=== PATIENT | male | born 1945 | race Caucasian/White ===

== ENCOUNTER 2016-07-12 03:26 | Emergency (ER) | payer MEDICARE ==
[2016-07-12] MEDS ORDERED: predniSONE 20 MG Tab PO STA (03:56)
--- NOTE | 2016-07-12 04:04 | EDM.PDOC ---
ED HPI GENERAL MEDICAL PROBLEM - General Chief Complaint: Allergic Reaction Stated Complaint: POSS ALERGIC REACTION Time Seen by Provider: 07/12/16 03:40 Source of Information: Reports: Patient, RN Notes Reviewed History Limitations: Reports: No Limitations - History of Present Illness INITIAL COMMENTS - FREE TEXT/NARRATIVE: The patient states that he developed generalized urticaria with pruritus yesterday morning, 07/11/2016. He believes that it was after he ate some a new type of cracker. He took some Benadryl, which helped with his symptoms, however , his symptoms worsened again last night, again, after eating those same crackers. He took some additional Benadryl before going to bed. He states that he has lip swelling, but denies any oropharyngeal swelling, dyspnea, or wheezing. No prior similar symptoms. The patient relates that he was started on Lipitor about 8 days ago, took it for 4 days, before discontinuing it due to lightheadedness. - Related Data Allergies Allergy/AdvReac Type Severity Reaction Status Date / Time No Known Allergies Allergy Verified 07/12/16 03:39 Home Meds: Home Meds Levothyroxine [Synthroid] 50 mcg PO DAILY 05/16/14 [History] Lisinopril/Hydrochlorothiazide [Lisinopril-Hctz 10-12.5 mg Tab] 1 tab PO DAILY 05/16/14 [History] EPINEPHrine [Adrenaclick] 1 injection IM ASDIRECTED PRN #1 kit 07/12/16 [Rx] Prednisone [IJD: predniSONE] 1 tab PO WITHBREAKFAST #5 tab 07/12/16 [Rx] Past Medical History HEENT History: Reports: Impaired Vision Cardiovascular History: Reports: High Cholesterol, Hypertension Endocrine/Metabolic History: Reports: Hypothyroidism - Past Surgical History Musculoskeletal Surgical History: Reports: Other (See Below) (Left elbow surgery x 2) Social & Family History - Family History Cardiac: Reports: [place] Neurological: Reports: CVA Oncologic: Reports: Leukemia - Tobacco Use Smoking Status *Q: Never Smoker Second Hand Smoke Exposure: No - Caffeine Use Caffeine Use: Reports: Coffee - Alcohol Use Alcohol Use History: Yes Alcohol Use Frequency: Socially - Recreational Drug Use Recreational Drug Use: No - Living Situation & Occupation Living situation: Reports: Single, with Significant Other Occupation: Employed ([employer]) ED ROS ALLERGIC REACTION - Review of Systems Review Of Systems: See Below Constitutional: Reports: No Symptoms HEENT: Reports: No Symptoms Respiratory: Reports: No Symptoms Cardiovascular: Reports: No Symptoms Endocrine: Reports: No Symptoms GI/Abdominal: Reports: No Symptoms : Reports: No Symptoms Musculoskeletal: Reports: No Symptoms Skin: Reports: No Symptoms Neurological: Reports: No Symptoms Psychiatric: Reports: No Symptoms Hematologic/Lymphatic: Reports: No Symptoms Immunologic: Reports: No Symptoms ED EXAM GENERAL NO PERIP PULSE - Physical Exam Exam: See Below Exam Limited By: No Limitations General Appearance: Alert, WD/WN, No Apparent Distress Eye Exam: Bilateral Eye: Normal Inspection Ears: Normal External Exam, Hearing Grossly Normal Nose: Normal Inspection, No Blood Throat/Mouth: Normal Inspection, Normal Teeth, Normal Gums, Normal Oropharynx, Normal Voice, No Airway Compromise, Other (Mildly swollen lips) Head: Atraumatic, Normocephalic Neck: Normal Inspection, Full Range of Motion Respiratory/Chest: No Respiratory Distress, Lungs Clear, Normal Breath Sounds, No Accessory Muscle Use Cardiovascular: Normal Peripheral Pulses, Regular Rate, Rhythm, No Gallop, No JVD, No Murmur, No Rub GI/Abdominal: Normal Bowel Sounds, Soft, Non-Tender, No Organomegaly, No Distention, No Abnormal Bruit, No Mass (Male) Exam: Deferred Rectal (Males) Exam: Deferred Back Exam: Normal Inspection, Full Range of Motion, NT Extremities: Normal Inspection, Normal Range of Motion, No Pedal Edema, Normal Capillary Refill Neurological: Alert, Oriented, Normal Cognition, No Motor/Sensory Deficits Psychiatric: Normal Affect Skin Exam: Warm, Dry, Intact, Other (Generalized urticaria) Lymphatic: No Adenopathy Course - Vital Signs Last Recorded V/S: Last Vital Signs Temp 36.6 C 07/12/16 03:36 Pulse 85 07/12/16 03:36 Resp 20 07/12/16 03:36 BP 121/60 07/12/16 03:36 Pulse Ox 97 07/12/16 03:36 - Orders/Labs/Meds Meds: Medications Discontinued Medications Generic Name Dose Route Start Last Admin Trade Name Freq PRN Reason Stop Dose Admin Prednisone 60 mg 07/12/16 03:56 07/12/16 04:07 Prednisone PO 07/12/16 03:57 60 mg ONETIME STA Administration - Re-Assessments/Exams Free Text/Narrative Re-Assessment/Exam: 07/12/16 03:57 The patient has generalized urticaria with pruritus. While he has lip swelling , he does not have any oropharyngeal swelling, and wheezing, or dyspnea. The cause of his allergic reaction is unknown, but something in the new crackers that he has been eating is a likely candidate. For today's purposes, I will treat him with prednisone 60 mg. I will discharge him home with an e-prescription for prednisone 20 mg daily, for the next 5 days , along with a prescription for an EpiPen. I will refer him to an Fundraising Coordinator. Departure - Departure Time of Disposition: 03:59 Disposition: Home, Self-Care 01 Condition: fair Clinical Impression: Allergic reaction, Urticaria, Pruritus - Discharge Information Prescriptions: EPINEPHrine [Adrenaclick] 1 injection IM ASDIRECTED PRN #1 kit PRN Reason: Shortness Of Breath Prednisone [IJD: predniSONE] 1 tab PO WITHBREAKFAST #5 tab Referrals: Beatriz Brady MD [Ordering Only Provider] - Forms: ED Department Discharge Additional Instructions: You were seen in the emergency room for itchy hives. You're suffering from an allergic reaction, but it is not known what you are allergic to. You have been started on the anti-inflammatory medicine prednisone. Take one tablet with breakfast each day, for the next 5 days, starting tomorrow, Friday , 07/13/2016, as prescribed. Finish the entire prescription unless told otherwise by a doctor. If at any time you have an allergic reaction such as this and you have difficulty breathing, either because your throat is swelling closed, or you are wheezing, use the epinephrine injector in your mid anterolateral thigh, as directed. You may repeat after 15 minutes, if necessary, however, it is imperative that you get to an emergency room right away if you need to use it. Followup with the Fundraising Coordinator Dr. Brady at the next available appointment. If any other problems, please do not hesitate to return to the ER.
[2016-07-12 05:18] VITALS: BP 102/54
== END 2016-07-12 04:19 | disposition home or self-care (01) ==
LOC: JD.ED 03:26
DX: L50.0 Allergic urticaria (principal); L29.9 Pruritus, unspecified; E78.00 Pure hypercholesterolemia, unspecified; I10 Essential (primary) hypertension; E03.9 Hypothyroidism, unspecified; Z79.899 Other long term (current) drug therapy
CPT/HCPCS: 99282; A9270; 99283

== ENCOUNTER 2020-03-22 11:00 | Day surgery (SDC) | payer MEDICARE, OTHER ==
[~2020-03-22 11:00] MED LIST: Lactated Ringers 1,000 ML IV SCH; Lidocaine 1%/Sod Bicarbonate in NS 8.4% 1 ML Syringe IDERM PRN; Sodium Chloride 0.9% 10 ML Syringe FLUSH PRN
[2020-03-22] MEDS ORDERED: Propofol 200 MG/20 ML SDV ONE (12:28)
[2020-03-22] MEDS ORDERED: Midazolam 1 MG/ML 2 ML SDV ONE (12:29)
[2020-03-22] MEDS ORDERED: Lidocaine 1% 4 ML ONE (12:29)
--- NOTE | 2020-03-22 12:44 | PCM.PREANE ---
Preanesthetic Assessment - Procedure Proposed Procedure: colonoscopy - Anesthesia/Transfusion/Family Hx Anesthesia History: Prior Anesthesia Without Reaction Family History of Anesthesia Reaction: No Transfusion History: No Prior Transfusion(s) - Review of Systems General: No Symptoms Pulmonary: No Symptoms Cardiovascular: No Symptoms Gastrointestinal: No Symptoms Neurological: No Symptoms Other: Reports: Thyroid Problems - Physical Assessment NPO Status Date: 03/21/20 NPO Status Time: 22:00 Vital Signs: 141/83 86 97% 97.4 16 Height: 6 ft 5 in Weight: 97 kg ASA Class: 2 Mental Status: Alert & Oriented x3 Airway Class: Mallampati = 2 Dentition: Reports: Normal Dentition Thyro-Mental Finger Breadths: 3 Mouth Opening Finger Breadths: 3 ROM/Head Extension: Full Lungs: Clear to Auscultation, Normal Respiratory Effort Cardiovascular: Regular Rate, Regular Rhythm - Allergies Allergies/Adverse Reactions: Allergies Allergy/AdvReac Type Severity Reaction Status Date / Time No Known Allergies Allergy Verified 03/21/20 12:04 - Blood Blood Available: No - Acknowledgements Anesthesia Type Planned: MAC Pt an Appropriate Candidate for the Planned Anesthesia: Yes Alternatives and Risks of Anesthesia Discussed w Pt/Guardian: Yes Pt/Guardian Understands and Agrees with Anesthesia Plan: Yes PreAnesthesia Questionnaire HEENT History: Reports: Impaired Vision Cardiovascular History: Reports: High Cholesterol, Hypertension, Other (See Below) Other Cardiovascular History: cardiac amyloidosis Respiratory History: Reports: None Gastrointestinal History: Reports: None Genitourinary History: Reports: UTI, Recurrent, Other (See Below) Other Genitourinary History: elevated PSA, dysuria CLIENT SUCCESS SPECIALIST History: Reports: None Musculoskeletal History: Reports: None Neurological History: Reports: Other (See Below) Other Neuro History: ulnar nerve lesion Psychiatric History: Reports: None Endocrine/Metabolic History: Reports: Hypothyroidism Hematologic History: Reports: None Immunologic History: Reports: None Oncologic (Cancer) History: Reports: None Dermatologic History: Reports: None - Infectious Disease History Infectious Disease History: Reports: Novel Coronavirus Other Infectious Disease History: 01/18/2020 - Past Surgical History Head Surgeries/Procedures: Reports: None HEENT Surgical History: Reports: None Cardiovascular Surgical History: Reports: None Respiratory Surgical History: Reports: None GI Surgical History: Reports: Colonoscopy Female Surgical History: Reports: None Male Surgical History: Reports: None Endocrine Surgical History: Reports: None Neurological Surgical History: Reports: None Musculoskeletal Surgical History: Reports: Other (See Below) Other Musculoskeletal Surgeries/Procedures:: left elbow surgery, foot surgery Oncologic Surgical History: Reports: None Dermatological Surgical History: Reports: None - SUBSTANCE USE Tobacco Use Status *Q: Never Tobacco User Tobacco Use Within Last Twelve Months: No Second Hand Smoke Exposure: No Days Per Week of Alcohol Use: 0 Recreational Drug Use History: No - HOME MEDS Home Medications: Home Meds Levothyroxine [Synthroid] 50 mcg PO DAILY 05/16/14 [History] Ibuprofen 200 - 800 mg PO Q6H PRN 03/21/20 [History] Rosuvastatin [Crestor] 5 mg PO BEDTIME 03/21/20 [History] Tafamidis [Vyndamax] 61 mg PO DAILY 03/21/20 [History] lisinopriL [Lisinopril] 20 mg PO DAILY 03/21/20 [History] - CURRENT (IN HOUSE) MEDS Current Meds: Current Medications Lactated Ringer's (Ringers, Lactated) 1,000 mls @ 125 mls/hr IV ASDIRECTED LAYNE Stop: 03/22/20 23:00 Lidocaine/Sodium Bicarbonate (Buffered Lidocaine 1% In Ns 8.4%) 0.25 ml IDERM ONETIME PRN PRN Reason: Prior to IV Start Stop: 03/22/20 18:00 Sodium Chloride (Saline Flush) 10 ml FLUSH ASDIRECTED PRN PRN Reason: Keep Vein Open Stop: 03/22/20 18:00 Discontinued Medications Lidocaine HCl (Xylocaine-Mpf 1%) Confirm Administered Dose 4 mls @ as directed .ROUTE .STK-MED ONE Stop: 03/22/20 12:30 Midazolam HCl (Versed 1 Mg/Ml) Confirm Administered Dose 2 mg .ROUTE .STK-MED ONE Stop: 03/22/20 12:30 Propofol (Diprivan 20 Ml) Confirm Administered Dose 400 mg .ROUTE .STK-MED ONE Stop: 03/22/20 12:29
--- NOTE | 2020-03-22 14:40 | PCM48HPAN ---
Post Anesthesia Note - EVALUATION WITHIN 48HRS OF ANESTHETIC Vital Signs in Normal Range: Yes Patient Participated in Evaluation: Yes Respiratory Function Stable: Yes Airway Patent: Yes Cardiovascular Function Stable: Yes Hydration Status Stable: Yes Pain Control Satisfactory: Yes Nausea and Vomiting Control Satisfactory: Yes Mental Status Recovered: Yes Vital Signs: Last Vital Signs Temp 97.4 F 03/22/20 11:10 Pulse 86 03/22/20 11:10 Resp 16 03/22/20 11:10 BP 141/83 H 03/22/20 11:10 Pulse Ox 97 03/22/20 11:10 1431 78 12 97.4 91% 103/53
--- NOTE | 2020-03-22 14:57 | PCM.OPNOTE ---
- General Post-Op/Procedure Note Date of Surgery/Procedure: 03/22/20 Operative Procedure(s): Colonoscopy Findings: 1. Ascending colon polyp 2. Transverse colon polyps x2 3. Transverse colon biopsy 4. Sigmoid colon polyp Pre Op Diagnosis: Family history of colon cancer Post-Op Diagnosis: same Anesthesia Technique: General ET Tube Primary Surgeon: Judith Castillo Anesthesia Provider: Tree Martínez Pathology: 1. Ascending colon polyp 2. Transverse colon polyp x2 3. Transverse colon biopsy 4. Sigmoid colon polyp Complications: none apparent Condition: Good
[2020-03-22 15:32] VITALS: BP 133/71; PULSE 68
--- NOTE | 2020-03-22 15:56 | PCM.PRNOTE ---
- Free Text/Narrative Note: Operative Report Date of Surgery/Procedure: March 22, 2020 Operative Procedure: Colonoscopy to cecum Pre Op Diagnosis: colorectal cancer screening with family history of colon cancer Post-Op Diagnosis: same Surgeon: Judith Castillo MD Anesthesia Technique: MAC Anesthesia Provider: Tree Martínez CRNA IV Fluid Replacement, Intraop: See anesthesia record Output, Urine Amount: 0cc EBL : 0cc Findings: 1. Ascending colon polyp 2. Hepatic flexure polyp 3. Transverse colon polyps x2 4. Transverse colon abnormal/ulcerated mucosa 5. Sigmoid colon polyp Specimens: 1. Ascending colon polyp 2. Hepatic flexure polyp 3. Transverse colon polyps x2 4. Transverse colon biopsy 5. Sigmoid colon polyp Indication: The patient is a 75 year-old gentleman who presented to the outpatient clinic requesting colorectal cancer screening. The patient has a history of two first degree relatives with colon cancer. We discussed the procedure of a colonoscopy including the polypectomy and biopsy. Risks of bleeding and perforation were discussed, the patient understood and wished to proceed. Written and consent was obtained Description of the procedure: The patient was brought to the endoscopy suite and placed in the left lateral decubitus position. Appropriate monitors were applied. The patient was given MAC anesthesia. An anorectal examination was performed, revealing no external abnormality. The scope was placed into the rectum and advanced to cecum with no significant difficulty. The patients cecum was entered, and the ileocecal valve and appendiceal orifice were identified and normal. At this point, the scope was withdrawn, paying careful attention to the mucosa. The patient had good bowel pr ep, allowing for visualization of 85-90% of the mucosa after some washing and suctioning. A 4mm semi-pedunculated polyp was noted in the ascending colon and removed with a hot snare. A 3mm flat polyp was remvoed from the hepatic flexure using a jumbo cold biopsy forceps. There were two flat polyps noted in the transverse colon measuring 3 to 4 mm. These were removed with a jumbo cold biopsy forceps. A 5 mm area of erythematous mucosa with a central ulceration was noted in the transverse colon and biopsied using a jumbo cold biopsy forceps. In the sigmoid colon, a 2 mm flat polyp was seen and removed using a jumbo cold biopsy forceps in the rectum, the scope was retroflexed and no abnormalities were noted, except for some hemorrhoidal tissue. The scope was placed back in the lumen and the excess air was aspirated. The patient tolerated the procedure well. Complications: none apparent Condition: Good, transported to PACU in stable condition Judith Castillo MD General Surgery
== END 2020-03-22 15:34 | disposition home or self-care (01) ==
LOC: JD.SDS 11:00
PROVIDERS: ATTEND Surgery
DX: Z12.11 Encounter for screening for malignant neoplasm of colon (principal); D12.3 Benign neoplasm of transverse colon; K64.9 Unspecified hemorrhoids; K51.40 Inflammatory polyps of colon without complications; Z80.0 Family history of malignant neoplasm of digestive organs; I10 Essential (primary) hypertension; E78.5 Hyperlipidemia, unspecified; E07.9 Disorder of thyroid, unspecified; Z79.899 Other long term (current) drug therapy; Z79.890 Hormone replacement therapy
CPT/HCPCS: 45380; 45385; J2001; J2250; J2704; J7120; 00812; 88305